=== PATIENT | male | born 1975 | race Caucasian/White ===

== ENCOUNTER 2017-07-10 15:31 | Emergency (ER) | payer OTHER ==
[2017-07-10 15:42] VITALS: BP 148/84; PULSE 80; TEMP 98.2; BMI 38.2
[2017-07-10] MEDS ORDERED: IBUPROFEN 600 MG TABLET (FP) PO ONE ×2 (16:17→16:23)
[2017-07-10] MEDS ORDERED: AMOXICILLIN 500 MG CAPSULE (FP) PO ONE (16:17)
[2017-07-10] MEDS ORDERED: AMOXICILLIN 250 MG CAPSULE ONE (16:23)
--- NOTE | 2017-07-10 16:23 | PDOC ---
History of Present Illness - General Chief Complaint: Sore Throat Stated Complaint: SORE THROAT DIFFICULTY SWALLOWING History Source: Patient Exam Limitations: No Limitations - History of Present Illness Initial Comments: 07/10/17 16:18 6-year-old male no past medical history here today complaining of sore throat. Patient's son did have strep throat 2 weeks ago has had chills but no fevers has pain on swallowing but is tolerating by mouth also feels inflammation near his ear and left and right side of his neck no nausea no vomiting no cough no other complaints took a pill earlier today for pain but nothing recently Past History - Past Medical History Allergies/Adverse Reactions: Allergies Allergy/AdvReac Type Severity Reaction Status Date / Time No Known Allergies Allergy Unverified 07/10/17 15:35 Home Medications: Ambulatory Orders Amoxicillin - [Amoxicillin 500mg Capsule -] 500 mg PO TID #30 capsule MDD 3 Ibuprofen [Motrin -] 600 mg PO TID #90 tablet 07/10/17 COPD: No Other medical history: DENIES - Surgical History Appendectomy: Yes - Suicide/Smoking/Psychosocial Hx Smoking History: Never smoked Information on smoking cessation initiated: No Hx Alcohol Use: Yes (SOCIAL) Drug/Substance Use Hx: No Substance Use Type: Alcohol Review of Systems - Review of Systems Constitutional: No: Chills, Diaphoresis HEENTM: Yes: Ear Pain, Nose Congestion, Throat Pain. No: Eye Pain Respiratory: No: Cough, Orthopnea Cardiac (ROS): No: Chest Pain, Edema ABD/GI: No: See HPI, Abdominal Distended : No: Burning, Dysuria Musculoskeletal: No: Back Pain Integumentary: No: See HPI, Bruising All Other Systems: Reviewed and Negative *Physical Exam - Vital Signs Last Vital Signs Temp Pulse Resp BP Pulse Ox 98.2 F 80 20 148/84 100 07/10/17 15:35 07/10/17 15:35 07/10/17 15:35 07/10/17 15:35 07/10/17 15:35 - Physical Exam General Appearance: Yes: Appropriately Dressed HEENT: positive: Normal Voice, Tonsillar Exudate (right tonsillar exudaten amoxicillin is HE HASW), Other (uvula midline). negative: Tonsillar Erythema ( WAS WITH), Nasal Congestion, Rhinorrhea, Sinus Tenderness ( A) Neck: positive: Trachea midline Respiratory/Chest: positive: Lungs Clear, Normal Breath Sounds Cardiovascular: positive: Regular Rhythm, Regular Rate, S1, S2 Gastrointestinal/Abdominal: positive: Normal Bowel Sounds, Flat, Soft. negative : Tender Musculoskeletal: positive: Normal Inspection. negative: CVA Tenderness Extremity: positive: Normal Capillary Refill, Normal Inspection, Normal Range of Motion Medical Decision Making - Medical Decision Making 07/10/17 16:21 Patient with tonsillar exudates on exam on the right side and known exposure to strep throat. We'll treat with amoxicillin 500 3 times a day 10 days as well as Motrin and follow-up with his primary care doctor return for any problems or concerns *DC/Admit/Observation/Transfer Diagnosis at time of Disposition: Strep pharyngitis - Discharge Dispostion Disposition: HOME Condition at time of disposition: Improved - Prescriptions Prescriptions: Amoxicillin - [Amoxicillin 500mg Capsule -] 500 mg PO TID #30 capsule MDD 3 Ibuprofen [Motrin -] 600 mg PO TID #90 tablet - Referrals - Patient Instructions Printed Discharge Instructions: Strep Throat Additional Instructions: Take amoxicillin 500 mg 3 times daily 10 days. He can take Motrin 600 mg every 8 hours as needed for pain drink plenty of liquids he can also take Tylenol 500 mg every 6 hours as needed for pain return for any difficulty swallowing worsening symptoms or any concerns. He should follow-up given primary care doctor within one week, call to schedule Print Language: [id number] - Post Discharge Activity Forms/Work/School Notes: Back to Work
== END 2017-07-10 16:52 | disposition home or self-care (01) ==
LOC: FER 15:31 → MERGE 15:31 → FER 16:52
DX: J02.0 Streptococcal pharyngitis (principal)
CPT/HCPCS: 99281-25

== ENCOUNTER → 2019-03-11 | Emergency (ER) | payer OTHER | LOC: FER 13:58 ==

== ENCOUNTER 2022-02-11 09:24 | Emergency (ER) | payer OTHER ==
[2022-02-11 09:51] VITALS: BP 143/98; PULSE 78; TEMP 99.1; BMI 37.5
[2022-02-11] MEDS ORDERED: IBUPROFEN 400 MG TABLET (FP) PO ONE ×2 (09:51→09:59)
== END 2022-02-11 11:26 | disposition home or self-care (01) ==
LOC: FER 09:24
DX: S83.92XA Sprain of unspecified site of left knee, initial encounter (principal); Y99.9 Unspecified external cause status
CPT/HCPCS: 73562-TC-LT-FY; 99283-25

== ENCOUNTER 2022-04-18 10:50 | Emergency (ER) | payer OTHER ==
[2022-04-18 11:01] VITALS: BMI 37.5
[2022-04-18] MEDS ORDERED: LIDOCAINE HCL 2% JELLY 10 ML CARTRIDGE ONE (11:45)
[2022-04-18] MEDS ORDERED: SODIUM CHLORIDE 1,000 ML IV STA ×2 (11:46→13:17)
[2022-04-18] MEDS ORDERED: LIDOCAINE HCL 2% JELLY 10 ML CARTRIDGE UR ONE (11:46)
[2022-04-18] MEDS ORDERED: ACETAMINOPHEN 1000 MG/100 ML BAG IVPB ONE (12:06)
[2022-04-18] MEDS ORDERED: ACETAMINOPHEN INJECTION 100 ML IVPB ONE (12:08)
[2022-04-18 12:21] LABS: HEMATOCRIT 29.5 % (35.4-49); HEMOGLOBIN 10.1 G/dL (11.7-16.9); MCH 28.9 pg (25.7-33.7); MCHC 34.1 g/dl (32.0-35.9); MEAN CELL VOLUME 84.7 fl (80-96); MEAN PLT VOLUME 9.4 fl (7.5-11.1); PLATELET COUNT 183.1 10^3/uL (134-434); RBC 3.48 10^6/uL (4.00-5.60); RDW 14.4 % (11.9-15.9)
[2022-04-18 12:28] LABS: ALBUMIN 3.2 g/dl (3.4-5.0); BILIRUBIN,TOTAL 0.7 mg/dl (0.2-1); CALCIUM 8.5 mg/dl (8.5-10); CREATININE 1.6 mg/dl (0.55-1.3); TOT PROT 7.1 g/dl (6.4-8.2)
[2022-04-18] MEDS ORDERED: ONDANSETRON *ODT* 4 MG TABLET SL ONE (13:05)
[2022-04-18] MEDS ORDERED: ONDANSETRON *ODT* 4 MG TABLET ONE (13:19)
[2022-04-18 13:33] LABS: EPITHELIAL CELLS RARE /hpf
[2022-04-18 13:38] LABS: PLATELET ESTIMATE ADEQUATE
[2022-04-18] MEDS ORDERED: KETOROLAC TROMETHAMINE 30 MG/1 ML VIAL IVPUSH ONE (15:10)
[2022-04-18] MEDS ORDERED: SULFAMETHOXAZOLE/TRIMETHOPRIM 800MG/160MG D.S. TABLET PO ONE (15:11)
[2022-04-18] MEDS ORDERED: CEFTRIAXONE 1,000 MG in DEXTROSE 5%-WATER - 50 ML IVPB ONE (15:14)
[2022-04-18] MEDS ORDERED: cefTRIAXone SODIUM 1 GM VIAL ONE (15:17)
[2022-04-18] MEDS ORDERED: PANTOPRAZOLE SODIUM 40 MG VIAL ONE (15:29)
[2022-04-18] MEDS ORDERED: ASPIRIN COATED 81 MG TABLET.EC ONE (15:29)
[2022-04-18 15:58] VITALS: BP 119/76; PULSE 98; RESP 18; TEMP 99
== END 2022-04-18 15:57 | disposition home or self-care (01) ==
LOC: FER 10:50
PROC: 3E033GC Introduction of Other Therapeutic Substance into Peripheral Vein, Percutaneous Approach (ICD-10-PCS; principal; 2022-04-18)
DX: N39.0 Urinary tract infection, site not specified (principal); B34.9 Viral infection, unspecified
CPT/HCPCS: 0241U-QW; 36415; 71045-TC-FY; 80053; 81003; 81015; 85027; 87086; 87186; 99284-25; Q0162

== ENCOUNTER 2022-05-25 09:50 | Emergency (ER) | payer OTHER ==
[2022-05-25] MEDS ORDERED: ACETAMINOPHEN 1000 MG/100 ML BAG IVPB ONE (10:24)
[2022-05-25 10:25] VITALS: BMI 35.7
[2022-05-25 11:31] LABS: INR 1.17 (0.83-1.09); PROTHROMBIN TIME (PATIENT) 13.5 SEC (9.7-13.0)
[2022-05-25] MEDS ORDERED: ACETAMINOPHEN INJECTION 100 ML IVPB ONE (11:32)
[2022-05-25 11:33] LABS: ACTIVATED PTT 36.1 SECONDS (25.2-36.5)
[2022-05-25 11:36] LABS: HEMATOCRIT 27.8 % (35.4-49); HEMOGLOBIN 9.5 G/dL (11.7-16.9); MCH 28.4 pg (25.7-33.7); MCHC 34.2 g/dl (32.0-35.9); MEAN CELL VOLUME 82.9 fl (80-96); MEAN PLT VOLUME 9.6 fl (7.5-11.1); PLATELET COUNT 199.3 10^3/uL (134-434); RBC 3.35 10^6/uL (4.00-5.60); RDW 16.2 % (11.9-15.9); WHITE BLOOD COUNT 9.1 10^3/uL (4.0-10.8)
[2022-05-25] MEDS ORDERED: ALBUTEROL SO4 HFA INHALER IH ONE (11:37)
[2022-05-25 11:41] LABS: ALBUMIN 3.4 g/dl (3.4-5.0); BILIRUBIN,TOTAL 1.1 mg/dl (0.2-1); CALCIUM 8.7 mg/dl (8.5-10); CREATININE 1.2 mg/dl (0.55-1.3); TOT PROT 6.6 g/dl (6.4-8.2)
[2022-05-25 11:48] LABS: PLATELET ESTIMATE ADEQUATE
[2022-05-25 12:13] LABS: EPITHELIAL CELLS RARE /hpf
[2022-05-25 12:57] LABS: VENOUS BASE EXCESS -0.1 mmol/L (-2-2); VENOUS O2 SATURATION 87.1 % (70-80); VENOUS PCO2 38.1 mmHg (38-52); VENOUS PH 7.421 (7.310-7.410)
[2022-05-25 18:27] VITALS: BP 137/89; PULSE 98; RESP 16; TEMP 98.9
== END 2022-05-25 18:37 | disposition home or self-care (01) ==
LOC: FER 09:50
PROC: 3E0333Z Introduction of Anti-inflammatory into Peripheral Vein, Percutaneous Approach (ICD-10-PCS; principal; 2022-05-25)
DX: N45.1 Epididymitis (principal)
CPT/HCPCS: 0241U-QW; 36415; 71045-TC-FY; 74177-TC; 76870-TC; 80053; 81003; 81015; 82550; 82553; 82803; 83605; 84484; 85027; 85610; 85730; 86850; 86900; 86901; 87040; 87086; 93005; 96374; 99285-25; Q9967

== ENCOUNTER 2022-10-31 09:47 | Emergency (ER) | payer OTHER ==
[2022-10-31 10:13] VITALS: BMI 37.5
[2022-10-31 10:40] LABS: EPITHELIAL CELLS RARE /hpf
[2022-10-31] MEDS ORDERED: SODIUM CHLORIDE 1,000 ML IV STA (10:48)
[2022-10-31] MEDS ORDERED: KETOROLAC TROMETHAMINE 15 MG/ML VIAL IVPUSH ONE (10:48)
[2022-10-31] MEDS ORDERED: ONDANSETRON 4 MG/2 ML VIAL IVPUSH ONE (10:49)
[2022-10-31] MEDS ORDERED: ONDANSETRON 4 MG/2 ML VIAL ONE (11:26)
[2022-10-31] MEDS ORDERED: KETOROLAC TROMETHAMINE 15 MG/ML VIAL ONE (11:26)
[2022-10-31] MEDS ORDERED: CEFTRIAXONE 1 GM in DEXTROSE 5%-WATER - 100 ML IVPB ONE (11:53)
[2022-10-31] MEDS ORDERED: cefTRIAXone SODIUM 1 GM VIAL ONE (11:59)
[2022-10-31 12:07] LABS: ALBUMIN 3.6 g/dl (3.4-5.0); BILIRUBIN,TOTAL 0.4 mg/dl (0.2-1); CALCIUM 8.6 mg/dl (8.5-10); CREATININE 1.2 mg/dl (0.55-1.3); TOT PROT 7.2 g/dl (6.4-8.2)
[2022-10-31 12:46] LABS: BASO % 0.5 % (0-2.0); EOS % 0.6 % (0-4.5); HEMATOCRIT 32.4 % (35.4-49); HEMOGLOBIN 10.7 GM/dL (11.7-16.9); MCH 25.5 pg (25.7-33.7); MEAN CELL VOLUME 77.3 fl (80-96); MEAN PLT VOLUME 9.2 fl (7.5-11.1); MONO % 8.5 % (3.8-10.2); NEUT % 80.4 % (42.8-82.8); PLATELET COUNT 340 10^3/uL (134-434); RBC 4.19 M/mm3 (4.00-5.60); WHITE BLOOD COUNT 12.7 K/mm3 (4.0-10.0)
[2022-10-31 13:49] VITALS: BP 122/82; PULSE 89; RESP 16; TEMP 99
== END 2022-10-31 14:02 | disposition home or self-care (01) ==
LOC: FER 09:47
PROC: 3E033GC Introduction of Other Therapeutic Substance into Peripheral Vein, Percutaneous Approach (ICD-10-PCS; principal; 2022-10-31)
PROC: 3E0333Z Introduction of Anti-inflammatory into Peripheral Vein, Percutaneous Approach (ICD-10-PCS; 2022-10-31)
PROC: 3E033GC Introduction of Other Therapeutic Substance into Peripheral Vein, Percutaneous Approach (ICD-10-PCS; 2022-10-31)
PROC: 3E0337Z Introduction of Electrolytic and Water Balance Substance into Peripheral Vein, Percutaneous Approach (ICD-10-PCS; 2022-10-31)
DX: N10 Acute pyelonephritis (principal); N45.1 Epididymitis
CPT/HCPCS: 36415; 74176-TC; 76870-TC; 80053; 81003; 81015; 83605; 85025; 87040; 87086; 87186; 99285-25

== ENCOUNTER 2022-11-24 03:43 | Day surgery (SDC) | payer OTHER ==
[2022-11-20 11:10] VITALS: BMI 37.5
[2022-11-24 08:28] VITALS: RESP 18
[2022-11-24] MEDS ORDERED: KETOROLAC TROMETHAMINE 30 MG/1 ML VIAL ONE (10:17)
[2022-11-24] MEDS ORDERED: PROPOFOL 20 ML ONE (10:17)
[2022-11-24] MEDS ORDERED: MIDAZOLAM HCL 2 MG/2 ML SINGLE DOSE VIAL ONE (10:17)
[2022-11-24] MEDS ORDERED: ceFAZolin SODIUM 1 GM VIAL ONE (10:33)
[2022-11-24] MEDS ORDERED: ceFAZolin SODIUM 1 GM VIAL IVPB ONE (10:35)
[2022-11-24] MEDS ORDERED: ONDANSETRON 4 MG/2 ML VIAL ONE (10:53)
[2022-11-24] MEDS ORDERED: ELECTROLYTE-148 SOLN 1,000 ML IV SCH (11:00)
[2022-11-24 12:08] VITALS: BP 142/84; PULSE 69; TEMP 97.7
== END 2022-11-24 12:15 | disposition home or self-care (01) ==
LOC: JASU-SURG 03:43
PROVIDERS: ATTEND Urology
PROC: 0TF3XZZ Fragmentation in Right Kidney Pelvis, External Approach (ICD-10-PCS; principal; 2022-11-24 10:00)
DX: N20.0 Calculus of kidney (principal)